=== PATIENT | female | born 1945 | race Caucasian/White ===

== ENCOUNTER 2016-09-07 17:36 | Emergency (ER) | payer OTHER | END 2016-09-07 22:55 | disposition home or self-care (01) | LOC: ER 17:36 | DX: S80.01XA Contusion of right knee, initial encounter (principal); K44.9 Diaphragmatic hernia without obstruction or gangrene; R16.1 Splenomegaly, not elsewhere classified; I51.7 Cardiomegaly; J18.9 Pneumonia, unspecified organism; S82.001A Unspecified fracture of right patella, initial encounter for closed fracture; M19.90 Unspecified osteoarthritis, unspecified site; M79.1 Myalgia; S42.302A Unspecified fracture of shaft of humerus, left arm, initial encounter for closed fracture; W01.0XXA Fall on same level from slipping, tripping and stumbling without subsequent striking against object, initial encounter; Y92.480 Sidewalk as the place of occurrence of the external cause; Z88.0 Allergy status to penicillin; Z88.2 Allergy status to sulfonamides; Z88.5 Allergy status to narcotic agent; Z79.899 Other long term (current) drug therapy; Z79.82 Long term (current) use of aspirin; Z79.4 Long term (current) use of insulin; Z79.890 Hormone replacement therapy | CPT/HCPCS: 70486; 71250; 72125; 72128; 72131; 73130; 73200; 73564; 96372; 96374; 99070; 99283-25; 99284; J1170; J8597 ==